=== PATIENT | male | born 1985 | race American Indian/Alaskan Native ===

== ENCOUNTER 2018-01-22 17:49 | Emergency (ER) | payer MEDICAID ==
[2018-01-22 18:08] VITALS: BP 137/89
[2018-01-22] MEDS ORDERED: XYLOCAINE 2% INFILTRATI ONE (21:45)
[2018-01-22] MEDS ORDERED: ULTRAM PO ONE (21:45)
[2018-01-22] MEDS ORDERED: BOOSTRIX IM ONE (21:46)
--- NOTE | 2018-01-22 21:50 | Emergency Department Report ---
ED Laceration HPI - HPI Chief Complaint: Wound/Laceration Stated Complaint: BRUISED (L)CHEEK/CUT ON FACE BY WINDOW Time Seen by Provider: 01/22/18 21:44 Occurred When: Today Location: Head (left cheek laceration) Severity: mild Tetanus Status: Not up to Date Laceration Symptoms: Yes Pain, No Foreign Body Sensation, No Numbness, No Weakness Other History: This is a 32-year-old nonverbal -Prydeinig male, accompanied by caregiver with laceration to left cheek. Care care of her, reports patient slipped in home today and hit left side of face against the window frame. She examined face and noticed the laceration with a moderate amount of bleeding to the left cheek. She cleaned the area with peroxide and water and applied a Band-Aid and brought him in for evaluation. She is not sure of the last time patient received a tetanus vaccination. ED Review of Systems ROS: Stated complaint: BRUISED (L)CHEEK/CUT ON FACE BY WINDOW Other details as noted in HPI Constitutional: denies: chills, fever Respiratory: denies: cough, shortness of breath, wheezing Cardiovascular: denies: chest pain, palpitations Gastrointestinal: denies: abdominal pain, nausea, diarrhea Skin: lesions (laceration to left cheek). denies: rash Neurological: denies: headache, weakness, numbness, paresthesias Psychiatric: denies: anxiety, depression ED Past Medical Hx - Past Medical History Previous Medical History?: Yes Additional medical history: learning disability, Pica, nonverbal - Surgical History Past Surgical History?: No - Social History Smoking Status: Never Smoker Substance Use Type: None - Medications Home Medications: Home Medications Medication Instructions Recorded Confirmed Last Taken Type Benztropine [Cogentin] 2 mg PO DAILY 09/27/17 09/27/17 09/25/17 History Chlorhexidine Mouthwash 15 PO HS 09/27/17 09/27/17 09/25/17 History Dextromethorphan HBr/Quinidine 09/27/17 09/25/17 History [Nuedexta 20-10 mg Capsule] Docusate Sodium [Stool Softener] 100 mg PO BID 09/27/17 09/27/17 09/25/17 History Fluvoxamine Maleate 100 mg PO BID 09/27/17 09/27/17 09/25/17 History Haloperidol [Haldol] 2 mg PO TID 09/27/17 09/27/17 09/25/17 History LORazepam [Ativan] 1 mg PO TID 09/27/17 09/27/17 09/25/17 History Loxapine (Nf) [Loxitane (Nf)] 50 PO BID 09/27/17 09/25/17 History Nuedexta 20-10 mg Capsule PO BID 09/27/17 09/25/17 History Ranitidine HCl [Heartburn Relief] 150 mg PO BID 09/27/17 09/27/17 09/25/17 History cloNIDine [Catapres] 0.1 mg PO BID 09/27/17 09/27/17 09/25/17 History Famotidine [Pepcid] 20 mg PO BID #30 tablet 10/03/17 Unknown Rx Sennosides Oral Liqd [Senokot] 17.6 mg PO Q12HR PRN 30 Days 10/03/17 Unknown Rx oral.liqd Sulfamethoxazole/Trimethoprim 1 each PO BID 7 Days #14 tablet 01/22/18 Unknown Rx [Bactrim DS TAB] Laceration Physical Exam - Exam General: Vital signs noted. No distress. Alert and acting appropriately. Wound Length (cm): 2 Laceration Location: Head (left cheek) Full Body Front + Back: 1 - 2 cm laceration to left mandible into tissue, no active bleeding, no surrounding cellulitis, no vessel or tendon visualized Laceration Exam: Yes Normal Distal CMS, No Foreign Body, No Exposed Tendon, Vessel, or Nerve, No Tendon Injury ED Course Vital Signs 01/22/18 18:02 Temperature 97.8 F Pulse Rate 99 H Respiratory 16 Rate Blood Pressure 137/89 O2 Sat by Pulse 99 Oximetry - Laceration /Wound Repair Left Lateral Cheek Wound Location: face Wound Length (cm): 2 Wound's Depth, Shape: into muscle, linear Wound Explored: no foreign body removed Irrigated w/ Saline (ccs): 1 Betadine Prep?: Yes Anesthesia: 1% Lidocaine (2% lidocaine) Volume Anesthetic (ccs): 1 Wound Repaired With: sutures Suture Size/Type: 6:0 Number of Sutures: 4 Layer Closure?: No Sterile Dressing Applied?: Yes ED Medical Decision Making - Radiology Data Radiology results: report reviewed X-ray of facial bones. Impression: No plain film evidence of facial fracture if concerns for fracture, CT imaging and maybe helpful. - Medical Decision Making This is a 32 y.o. male , nonverbal, accompanied by health and social care teacher presents with laceration to left cheek. Patient examined by me. X-ray of facial bones obtained and dictated by radiologist, no acute findings. Patient is non-toxic appearing and stable. Patient given tramadol 50 mg by mouth once while in the ER and tetanus vaccination. Laceration repair with 4 sutures, review note. Discharged home for outpatient treatment with bactrim. Patient caregiver instructed to continue with ibuprofen, Tylenol, or naproxen for pain. Discussed ER care plan with patient. Patient agreed with plan. F/U with PCP. Critical care attestation.: If time is entered above; I have spent that time in minutes in the direct care of this critically ill patient, excluding procedure time. ED Disposition Clinical Impression: Laceration of cheek without foreign body Qualifiers: Encounter type: initial encounter Laterality: left Qualified Code(s): S01.412A - Laceration without foreign body of left cheek and temporomandibular area, initial encounter Disposition: TO HOME OR SELFCARE Is pt being admited?: No Does the pt Need Aspirin: No Condition: Stable Instructions: Suture Care (ED), Laceration (ED) Additional Instructions: Take antibiotics as prescribed for the full course. Keep wound dry and clean for 48 hours. Avoid putting to much tension on wound site. Follow up with Primary Care Provider in 2-3 days. Have sutures removed in 7 days by primary care provider or in ER. Return to ER if red, swollen, foul discharge, or fever. Prescriptions: Sulfamethoxazole/Trimethoprim [Bactrim DS TAB] 1 each PO BID 7 Days #14 tablet Referrals: [facility] [Outside] - 3-5 Days JAROD DAVILA MD [Staff Physician] - 3-5 Days Time of Disposition: 22:56 Print Language: AMERICAN
--- NOTE | 2018-01-23 16:20 | XRay Report ---
FINAL REPORT EXAM: XR FACIAL BONES 3+V HISTORY: laceration left cheek TECHNIQUE: Frontal and lateral views of the facial bones. Comparison: None FINDINGS: There is no evidence of fracture. The paranasal sinuses are without mucosal thickening or air-fluid levels. The nasal septum is midline. IMPRESSION: 1. No plain film evidence of facial fracture. If there is a persistent clinical concern for fracture, CT imaging may be helpful.
== END 2018-01-22 23:10 | disposition home or self-care (01) ==
LOC: ED 17:49
DX: S01.412A Laceration without foreign body of left cheek and temporomandibular area, initial encounter (principal); W01.190A Fall on same level from slipping, tripping and stumbling with subsequent striking against furniture, initial encounter; Y93.89 Activity, other specified; Y99.8 Other external cause status; Y92.019 Unspecified place in single-family (private) house as the place of occurrence of the external cause
CPT/HCPCS: 70150; 90471; 90715

== ENCOUNTER 2021-01-20 22:55 | Emergency (ER) | payer MEDICAID ==
[2021-01-20] MEDS ORDERED: SODIUM CHLORIDE 0.9% 1000 ML 1,000 ML IV ONE (23:00)
--- NOTE | 2021-01-20 23:42 | XRay Report ---
CHEST 1 VIEW 01/20/2021 10:32 PM INDICATION / CLINICAL INFORMATION: cough. fever. COMPARISON: One view of the chest from 03/22/2018. FINDINGS: SUPPORT DEVICES: None. HEART / MEDIASTINUM: No significant abnormality. LUNGS / PLEURA: No significant pulmonary abnormality. No significant pleural effusion. No pneumothora x. ADDITIONAL FINDINGS: No significant additional findings. IMPRESSION: 1. No acute abnormality of the chest. Signer Name: Shelton Crook MD Signed: 01/20/2021 11:38 PM Workstation Name: [id number]
--- NOTE | 2021-01-20 23:49 | Emergency Department Report ---
ED Fever HPI - General Chief Complaint: Fever Stated Complaint: SWOLLEN NECK PUI?: No Time Seen by Provider: 01/20/21 22:57 Source: EMS Exam Limitations: other - History of Present Illness Initial Comments: Patient is a 35-year-old male who presents emergency room for right-sided neck swelling, fever, cough patient has a history of MR and autism. Patient is nonverbal. Patient brought in by EMS. Report received from EMS. Patient came in from a custodial. Patient power of insurance defense attorney did not come with the patient. Per EMS this is the patient's neurologic baseline. ED Review of Systems ROS: Stated complaint: SWOLLEN NECK Other details as noted in HPI Comment: Unobtainable due to pts medical conditions ED Past Medical Hx - Past Medical History Previous Medical History?: Yes Hx Congestive Heart Failure: No Hx Diabetes: No Hx Asthma: No Hx COPD: No Additional medical history: learning disability, Pica, nonverbal, MR, autism - Surgical History Past Surgical History?: No - Family History Family history: no significant - Social History Smoking Status: Never Smoker Substance Use Type: None - Medications Home Medications: Home Medications Medication Instructions Recorded Confirmed Last Taken Type Benztropine [Cogentin] 2 mg PO DAILY 09/27/17 09/27/17 09/25/17 History Chlorhexidine Mouthwash 15 PO HS 09/27/17 09/27/17 09/25/17 History Dextromethorphan HBr/Quinidine 09/27/17 09/25/17 History [Nuedexta 20-10 mg Capsule] Docusate Sodium [Stool Softener] 100 mg PO BID 09/27/17 03/22/18 03/21/18 08:00 History 100 mg Fluvoxamine Maleate 100 mg PO BID 09/27/17 09/27/17 09/25/17 History LORazepam [Ativan] 1 mg PO TID 09/27/17 03/22/18 03/21/18 12:00 History 1 mg Loxapine (Nf) [Loxitane (Nf)] 50 mg PO BID 09/27/17 03/22/18 03/21/18 08:00 History 25 mg Nuedexta 20-10 mg Capsule 1 cap PO BID 09/27/17 03/22/18 03/21/18 08:00 History 1 cap cloNIDine [Catapres] 0.1 mg PO BID 09/27/17 03/22/18 03/21/18 12:00 History 0.1 mg haloperidoL [Haldol] 2 mg PO TID 09/27/17 03/22/18 03/21/18 16:00 History 2mg/ml raNITIdine HCL [Heartburn Relief] 150 mg PO BID 09/27/17 03/22/18 03/21/18 08:00 History 150 mg Famotidine [Pepcid] 20 mg PO BID #30 tablet 10/03/17 Unknown Rx Chlorhexidine Mouthwash ml 03/22/18 03/21/18 20:00 History Docusate Sodium [Colace CAP] 03/22/18 Unknown History ED Physical Exam - General Limitations: Altered Mental Status, Physical Limitation General appearance: alert, in no apparent distress - Head Head exam: Present: atraumatic, normocephalic - Eye Eye exam: Present: normal appearance, PERRL Pupils: Present: normal accommodation - ENT ENT exam: Present: mucous membranes dry, other (Right-sided neck mass and enlargement noted. Site is tender to palpation.) - Neck Neck exam: Present: normal inspection - Respiratory Respiratory exam: Present: normal lung sounds bilaterally. Absent: respiratory distress, wheezes, rales - Cardiovascular Cardiovascular Exam: Present: regular rate, normal rhythm. Absent: systolic murmur, diastolic murmur, rubs, gallop - GI/Abdominal GI/Abdominal exam: Present: soft, normal bowel sounds. Absent: distended, tenderness - Rectal Rectal exam: Present: deferred - Extremities Exam Extremities exam: Present: normal inspection - Back Exam Back exam: Present: normal inspection - Neurological Exam Neurological exam: Present: alert, altered - Skin Skin exam: Present: warm, dry, intact, normal color. Absent: rash ED Course Vital Signs 01/20/21 01/21/21 01/21/21 23:42 02:57 04:20 Temperature 98.9 F 99.8 F H Pulse Rate 101 H 105 H Respiratory 20 20 20 Rate Blood Pressure 111/69 118/60 [Left] O2 Sat by Pulse 99 99 97 Oximetry - Reevaluation(s) Reevaluation #1: Patient having increased restlessness and the patient pulled out his IV. Patient will be given Geodon so he can get adequate CT scans done. Patient also will require medications. 01/21/21 02:58 Reevaluation #2: Patient CT is done. Patient connected back to the monitor. 01/21/21 05:05 Reevaluation #3: Patient to be transferred to [facility]. 01/21/21 06:05 - Consultations Consultation #1: I discussed the case with ENT at [place]. Dr. Gomez has accepted the patient be transferred to [facility] ER. 01/21/21 06:05 ED Medical Decision Making - Lab Data Result diagrams: 01/20/21 23:38 01/20/21 23:38 - Radiology Data Radiology results: report reviewed, image reviewed interpreted by me: Chest x-ray: No pneumonia, no pneumothorax, no foreign body, no osseous findings, no acute findings CHEST 1 VIEW 01/20/2021 10:32 PM INDICATION / CLINICAL INFORMATION: cough. fever. COMPARISON: One view of the chest from 03/22/2018. FINDINGS: SUPPORT DEVICES: None. HEART / MEDIASTINUM: No significant abnormality. LUNGS / PLEURA: No significant pulmonary abnormality. No significant pleural effusion. No pneumothorax. ADDITIONAL FINDINGS: No significant additional findings. IMPRESSION: 1. No acute abnormality of the chest. CT neck wo/w con HISTORY: Pt complains of fever and neck swelling COMPARISON: None. TECHNIQUE: CT of the neck is performed. All CT scans at this location are performed using CT dose reduction for [employer] by means of automated exposure control. FINDINGS: There is significant inflammation extending from the right floor mouth which extends caudally involving the submandibular and sublingual glands to the right supraclavicular soft tissues. There are scattered regions of gas seen throughout the right neck in the region of inflammation. No foreign body. No dental abscess. The inflammation extends across into the retropharyngeal space and across the aryepiglottic fold and epiglottis. This results in significant mass effect effect and leftward deviation of the airway resulting in significant narrowing in the hypopharynx. Mildly prominent lymph nodes are likely reactive. The internal jugular vein is patent without thrombus. Osseous structures appear within normal limits. IMPRESSION: 1. 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 - Medical Decision Making Patient is a 35-year-old male presents emergency room for fever and neck swelling. Patient has been afebrile the entire time in the ER. Patient found to have stable vital signs. Patient had labs done which were essentially unremarkable. Patient's lactic acid was negative. Patient's WBC was normal. Patient given IV antibiotics and IV fluids in the ER. Patient's neck exam shows extensive neck swelling to the right side. Patient history of MR and autism. Patient is nonverbal. Patient is not cooperative. Patient required Geodon in order to get a clear CT scan of the neck. Patient's uncooperativeness caused a delay and treatment and disposition. Patient shows a ludwings angina with airway narrowing. Patient to be transferred to a facility that has the service. Patient to be transferred to [facility] ER. ENT [place] is accepted the patient. Patient is stable for transfer. Critical care time documented due to the multiple reassessments, prolonged time at the bedside, interpretation of diagnostics and labs and discussion with receiving facility and consultants. - Differential Diagnosis Fever, cough,, Parotid gland infection, neck swelling Critical Care Time: Yes Critical care time in (mins) excluding proc time.: 80 Critical care attestation.: If time is entered above; I have spent that time in minutes in the direct care of this critically ill patient, excluding procedure time. Critical Care Time: 80 minutes ED Disposition Clinical Impression: Restlessness, Neck swelling, Ludwigs angina Altered mental status Qualifiers: Altered mental status type: unspecified Qualified Code(s): R41.82 - Altered mental status, unspecified Fever Qualifiers: Fever type: unspecified Qualified Code(s): R50.9 - Fever, unspecified Disposition: DC/TX-70 ANOTHER TYPE HLTHCARE Is pt being admited?: Yes Does the pt Need Aspirin: No Condition: Critical Time of Disposition: 06:07
[2021-01-21 00:37] LABS: Basophils % (Auto) 0.3 % (0.0-1.8); Eosinophils % (Auto) 0.3 % (0.0-4.3); Hemoglobin 10.7 gm/dl (11.8-15.2); Lymphocytes # (Auto) 0.4 K/mm3 (1.2-5.4); Lymphocytes % (Auto) 5.8 % (13.4-35.0); Mean Corpuscular HGB Conc 34 % (32-34); Mean Corpuscular Volume 94 fl (84-94); Monocytes # (Auto) 0.9 K/mm3 (0.0-0.8); Monocytes % (Auto) 12.1 % (0.0-7.3); Platelet Count 126 K/mm3 (140-440); Red Blood Count 3.41 M/mm3 (3.65-5.03); Red Cell Distribution Width 13.1 % (13.2-15.2)
[2021-01-21] MEDS ORDERED: CLINDAMYCIN 600 MG/50 mL 600 MG/50 ML BAG IV ONE ×2 (00:57→05:00)
[2021-01-21 01:00] LABS: Alanine Aminotransferase 41 units/L (7-56); Albumin 3.7 g/dL (3.9-5); Blood Urea Nitrogen 13 mg/dL (9-20); Calcium 8.4 mg/dL (8.4-10.2); Hemolysis Index 33
[2021-01-21 01:17] LABS: BUN/Creatinine Ratio 19
[2021-01-21 03:20] LABS: Bilirubin,Urine NEG (Negative); Blood,Urine SM (Negative); Color,Urine Straw (Yellow); RBC,Urine < 1.0 /HPF (0.0-6.0); Urobilinogen,Urine < 2.0 mg/dL (<2.0)
[2021-01-21] MEDS ORDERED: SODIUM CHLORIDE 0.9% 1000 ML 1,000 ML ONE (04:10)
[2021-01-21] MEDS ORDERED: WATER FOR INJ Sterile (PF) 10 ML ONE (04:15)
[2021-01-21] MEDS: ZIPRASIDONE MESYLATE 20 MG VIAL IM ONE ×2 (04:30→06:28)
--- NOTE | 2021-01-21 05:39 | Cat Scan Report ---
CT neck wo/w con HISTORY: Pt complains of fever and neck swelling COMPARISON: None. TECHNIQUE: CT of the neck is performed. All CT scans at this location are performed using CT dose red uction for [employer] by means of automated exposure control. FINDINGS: There is significant inflammation extending from the right floor mouth which extends caudally involvi ng the submandibular and sublingual glands to the right supraclavicular soft tissues. There are scatt ered regions of gas seen throughout the right neck in the region of inflammation. No foreign body. No dental abscess. The inflammation extends across into the retropharyngeal space and across the aryepi glottic fold and epiglottis. This results in significant mass effect effect and leftward deviation of the airway resulting in significant narrowing in the hypopharynx. Mildly prominent lymph nodes are likely reactive. The internal jugular vein is patent without thrombu s. Osseous structures appear within normal limits. IMPRESSION: 1. 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 I spoke with Dr. Tucker at 4:25 Signer Name: Arnold Baxter MD Signed: 01/21/2021 5:35 AM Workstation Name: [id number]
[2021-01-21 06:21] VITALS: BP 99/64
[2021-01-21] MEDS ORDERED: ZIPRASIDONE MESYLATE 20 MG VIAL IM ONE (06:26)
== END 2021-01-21 07:36 | disposition other institution (70) ==
LOC: ED 22:55
DX: K12.2 Cellulitis and abscess of mouth (principal); R22.1 Localized swelling, mass and lump, neck; R50.9 Fever, unspecified; R41.82 Altered mental status, unspecified; R45.1 Restlessness and agitation; Z79.899 Other long term (current) drug therapy
CPT/HCPCS: 36415; 70492; 71045; 80053; 81001; 82140; 85025; 96365; 96366; 96372; 99285; J3486; J7030; Q9967